=== PATIENT | male | born 1985 | race American Indian/Alaskan Native ===

== ENCOUNTER 2019-06-04 11:12 | Emergency (ER) | payer SELFPAY ==
--- NOTE | 2019-06-04 14:04 | Emergency Department Report ---
Minor Respiratory - HPI Chief Complaint: Upper Respiratory Infection Stated Complaint: CHEST COLD/RED EYE Time Seen by Provider: 06/04/19 13:35 Duration: times one week that is worsening. Pain Location: Throat (sore throat with cough ), Chest (reports chest sore with coughing but no chest pain without coughing.) Severity: severe (7-8 out of 10) Minor Respiratory: Yes Rhinorrhea (nasal congestion), Yes Sore Throat (with cough and), Yes Able to Tolerate Fluids, Yes Cough (congested cough and reported wheezing), Yes Chest Pain (chest soreness with cough and), No Ear Pain, No Sick Contacts, No Hemoptysis, No Shortness of Breath, No Fever (for chills) Other History: This is a 34-year-old male he reports that he has been coughing for over a week and he is coughing up green phlegm also he has a history of sinus infections and his nose is congested with facial pain and pressure around his eyes. He reports that he has been coughing so much that is right eye has a blood clot at the side and both his eyes are red. He said he takes [id number] cold and cough medication but no relief. Denies any medical problems. Denies any surgical history. Denies any cardiac or respiratory disease. ED Review of Systems ROS: Stated complaint: CHEST COLD/RED EYE Other details as noted in HPI Constitutional: chills Eyes: denies: eye pain, eye discharge ENT: throat pain, congestion Respiratory: cough, wheezing. denies: shortness of breath, SOB with exertion, SOB at rest Cardiovascular: other (chest soreness associated with cough and). denies: chest pain, palpitations, dyspnea on exertion, edema, syncope Gastrointestinal: denies: abdominal pain, nausea, vomiting Musculoskeletal: denies: back pain, joint swelling, arthralgia, myalgia Skin: denies: rash Neurological: denies: headache ED Past Medical Hx - Past Medical History Previous Medical History?: No - Surgical History Past Surgical History?: No - Family History Family history: hypertension - Social History Smoking Status: Current Every Day Smoker Substance Use Type: Alcohol - Medications Home Medications: Home Medications Medication Instructions Recorded Confirmed Last Taken Type ALBUTEROL Inhaler (OR & NICU) 2 puff IH Q6H PRN #1 inhalation 06/04/19 Unknown Rx [ProAir HFA Inhaler] Azithromycin [Zithromax Z-PAWAN] 250 mg PO DAILY 5 Days #1 pkg 06/04/19 Unknown Rx Cetirizine HCl [ZyrTEC] 10 mg PO QAM 14 Days #14 capsule 06/04/19 Unknown Rx Fluticasone [Flonase] 1 spray NS QDAY 14 Days #1 bottle 06/04/19 Unknown Rx Gentamicin 0.3% Ophth Soln 2 drops OD Q8H 7 Days #1 bottle 06/04/19 Unknown Rx Prednisone [predniSONE 10 mg 10 mg PO .TAPER 6 Days #1 tab.ds.pk 06/04/19 Unknown Rx (6-Day Pack, 21 Tabs)] Minor Respiratory Exam - Exam General: Vital signs noted. No distress. Alert and acting appropriately. This is a 34-year-old male well-nourished well-developed in no acute distress. HEENT: Yes Moist Mucous Membranes (uvula is midline and oral airways patent), Yes Rhinorrhea (congested with mucosal swelling and maxillary and frontal sinuses tender to palpate), Yes Frontal Tenderness, Yes Maxillary Tenderness, No Pharyngeal Erythema, No Pharyngeal Exudates, No Conjuctival Injection Ear: Neither TM Bulge (middle ear effusion bilaterally), Neither TM Erythema, Neither EAC Pain, Neither EAC Discharge Neck: Yes Supple (full range of motion), No Adenopathy Lungs: Yes Wheezes, Yes Ronchi (clear to cough and), Yes Cough (congested cough), No Stridor, No Labored Respirations, No Retractions, No Use of Accessory Muscles, No Other Abnormal Lung Sounds Heart: Yes Regular, No Murmur Abdomen: Yes Normal Bowel Sounds (in all quadrants), No Tenderness (all quadrants), No Peritoneal Signs Skin: No Rash, No Edema Neurologic: Alert and oriented, no deficits. Musculoskeletal: Unremarkable. No cce. + 2 pulses in all extremities, no neurovascular compromise ED Course Vital Signs 06/04/19 11:21 Temperature 98.5 F Pulse Rate 88 Respiratory 17 Rate Blood Pressure 158/97 O2 Sat by Pulse 94 Oximetry - Reevaluation(s) Reevaluation #1: 06/04/19 16:46 given and Deltasone 60 mg by mouth, Xopenex 1.26 mg and Atrovent 1 mg nebulized in emergency room with positive relief of cough and congestion and he said he feels better. ED Medical Decision Making - Radiology Data Radiology results: report reviewed - Medical Decision Making This is a 34-year-old male here present with cough and congestion with wheezing. His vital signs are stable afebrile. Patient found to have sinusitis, conjunctivitis and right subconjunctival hemorrhage with URI and cough and wheezing. She modifies reinstatement throughout ED stay. His pain has gotten better since he has been emergency room. He is not having any chest pain or shortness of breath. He reports his cough is better. I discussed the patient is diagnosis and he voiced understanding he felt better after getting the nebulizer treatment and steroid. Patient discharged home in stable condition with prescription for prednisone Dosepak, Zyrtec, Flonase, Z-Pawan, albuterol and antibiotic eyedrop Critical care attestation.: If time is entered above; I have spent that time in minutes in the direct care of this critically ill patient, excluding procedure time. ED Disposition Clinical Impression: Acute bacterial rhinosinusitis, Cough in adult patient, Subconjunctival hemorrhage of right eye Acute bronchitis Qualifiers: Bronchitis organism: unspecified organism Qualified Code(s): J20.9 - Acute bronchitis, unspecified Conjunctivitis, acute, bilateral Qualifiers: Acute conjunctivitis type: unspecified Qualified Code(s): H10.33 - Unspecified acute conjunctivitis, bilateral Disposition: DC-01 TO HOME OR SELFCARE Is pt being admited?: No Does the pt Need Aspirin: No Condition: Stable Instructions: Acute Bronchitis (ED), Acute Bacterial Rhinosinusitis (ED), Acute Cough (ED) Additional Instructions: follow-up the primary care physician if condition worsens, return to the emergency room Take medication as prescribed Referrals: [facility] [Outside] - 06/06/19 Forms: Work/School Release Form(ED)
[2019-06-04] MEDS ORDERED: IPRATROPIUM 0.02% NEBU 2.5 ML IH ONE ×2 (14:05→14:09)
[2019-06-04] MEDS ORDERED: predniSONE 20 MG TAB PO ONE (14:05)
[2019-06-04] MEDS ORDERED: LEVALBUTEROL 0.63 MG/3 ML NEBU IH ONE (14:05)
[2019-06-04] MEDS ORDERED: LEVALBUTEROL 1.25 MG/3 ML NEB IH ONE (14:09)
[2019-06-04 14:36] VITALS: BP 127/60
== END 2019-06-04 17:08 | disposition home or self-care (01) ==
LOC: ED 11:12
DX: J01.90 Acute sinusitis, unspecified (principal); J20.9 Acute bronchitis, unspecified; H10.33 Unspecified acute conjunctivitis, bilateral; H11.31 Conjunctival hemorrhage, right eye; F17.200 Nicotine dependence, unspecified, uncomplicated; Z79.899 Other long term (current) drug therapy
CPT/HCPCS: 94640; 99283; J7512; 94644

== ENCOUNTER 2021-12-12 11:05 | Emergency (ER) | payer OTHER ==
--- NOTE | 2021-12-12 12:17 | XRay Report ---
Right ankle INDICATION: Ankle injury FINDINGS: Diffuse swelling the lateral ankle. Talar dome appears intact. There may be a small joint e ffusion. No displaced fracture. Signer Name: Landon Ramires MD Signed: 12/12/2021 12:12 PM Workstation Name: [id number]
[2021-12-12] MEDS ORDERED: HYDROcodone/ACETAMINOPHEN 10-325MG TAB PO ONE (15:31)
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
[2021-12-12 16:31] VITALS: BP 145/85
== END 2021-12-12 17:33 | disposition home or self-care (01) ==
LOC: ED 11:05
DX: S99.911A Unspecified injury of right ankle, initial encounter (principal); F17.200 Nicotine dependence, unspecified, uncomplicated; Z79.899 Other long term (current) drug therapy; Y04.0XXA Assault by unarmed brawl or fight, initial encounter; Y93.89 Activity, other specified; Y92.89 Other specified places as the place of occurrence of the external cause; Y99.8 Other external cause status
CPT/HCPCS: 99283